=== PATIENT | female | born 1945 | race Caucasian/White ===

== ENCOUNTER 2018-04-09 12:30 | Inpatient (IN) | payer BC ==
[2018-04-10] MEDS ORDERED: CELECOXIB 100 MG CAPSULE PO ONE (14:15)
[2018-04-10] MEDS ORDERED: FAMOTIDINE 20MG TABLET PO ONE (14:15)
[2018-04-10] MEDS ORDERED: ACETAMINOPHEN 1,000 MG/100 ML BTL IV ONE (14:15)
[2018-04-10] MEDS ORDERED: METOCLOPRAMIDE 10 MG TABLET PO ONE (14:15)
[2018-04-10] MEDS ORDERED: MECLIZINE 25 MG TABLET PO ONE (14:15)
[2018-04-10] MEDS ORDERED: VANCOMYCIN HCL 1,000 MG in DEXTROSE 5 % IN WATER 250 ML IVPB ONE ×2 (14:15)
[2018-04-14] MEDS ORDERED: CELECOXIB 100 MG CAPSULE PO ONE (06:00)
[2018-04-14] MEDS ORDERED: MECLIZINE 25 MG TABLET PO ONE (06:00)
[2018-04-14] MEDS ORDERED: FAMOTIDINE 20MG TABLET PO ONE (06:00)
[2018-04-14] MEDS ORDERED: VANCOMYCIN HCL 1,000 MG in DEXTROSE 5 % IN WATER 250 ML IVPB ONE ×2 (06:00)
[2018-04-14] MEDS ORDERED: ACETAMINOPHEN 1,000 MG/100 ML BTL IV ONE (06:00)
[2018-04-14] MEDS ORDERED: METOCLOPRAMIDE 10 MG TABLET PO ONE (06:00)
[2018-04-14] MEDS ORDERED: PROMETHAZINE HCL 12.5 MG in 0.9 % SODIUM CHLORIDE 100ML 50 ML IVPB PRN (08:21)
[2018-04-14] MEDS ORDERED: BISACODYL 10 MG SUPP RC PRN (08:21)
[2018-04-14] MEDS ORDERED: NALOXONE 0.4 MG/1 ML VIAL IVP PRN (08:21)
[2018-04-14] MEDS ORDERED: MAGNESIUM HYDROXIDE 30 ML UDC PO PRN (08:21)
[2018-04-14] MEDS ORDERED: ACETAMINOPHEN W/ CODEINE 300MG/30MG TABLET PO PRN ×2 (08:21)
[2018-04-14] MEDS ORDERED: ONDANSETRON HCL IV 4 MG/2 ML VIAL IVP PRN (08:21)
[2018-04-14] MEDS ORDERED: HYDROMORPHONE HCL 2 MG/ML VIAL IM PRN ×2 (08:21)
[2018-04-14] MEDS ORDERED: METOCLOPRAMIDE HCL 10 MG/2 ML VIAL IVP PRN (08:21)
[2018-04-14] MEDS ORDERED: DIPHENHYDRAMINE HCL 25 MG CAPSULE PO PRN (08:21)
[2018-04-14] MEDS ORDERED: ZOLPIDEM TARTRATE 5 MG TABLET PO PRN (08:21)
[2018-04-14] MEDS ORDERED: KETOROLAC 30 MG/ML VIAL IVP PRN ×2 (08:21)
[2018-04-14] MEDS ORDERED: TRAMADOL HCL 50 MG TABLET PO PRN ×2 (08:21)
[2018-04-14] MEDS ORDERED: HYDROCODONE/APAP 7.5/325MG TABLET PO PRN (08:21)
[2018-04-14] MEDS ORDERED: ACETAMINOPHEN W/ CODEINE 300MG/60MG TABLET PO PRN ×2 (08:21)
[2018-04-14] MEDS ORDERED: AL HYDROX/MAG HYDROX 30ML UD PO PRN (08:21)
[2018-04-14] MEDS ORDERED: ACETAMINOPHEN 325 MG TAB PO PRN (08:21)
[2018-04-14] MEDS ORDERED: HYDROCODONE/APAP 5/325MG TABLET PO PRN ×2 (08:21)
[2018-04-14 08:41] LABS: ABO GROUP A; ANTIBODY SCREEN NEGATIVE (NEGATIVE); RH TYPE POSITIVE
[2018-04-14] MEDS ORDERED: DEXTROSE 5 % AND 0.9 % NACL 1,000 ML IV PRN (12:00)
[2018-04-14] MEDS ORDERED: DIPHENHYDRAMINE HCL 50 MG/ML VIAL IVP ONE (14:00)
[2018-04-14] MEDS ORDERED: DEXAMETHASONE 4 MG/ML 1ML VIAL IVP ONE (14:00)
[2018-04-14] MEDS ORDERED: HYDROMORPHONE HCL 2 MG/ML VIAL IV ONE (14:00)
[2018-04-14] MEDS ORDERED: FENTANYL PF 100MCG/2ML VIAL IV ONE (14:00)
[2018-04-14] MEDS ORDERED: SCOPOLAMINE 1 PATCH TDSY TD ONE (14:00)
[2018-04-14] MEDS ORDERED: ONDANSETRON HCL IV 4 MG/2 ML VIAL IVP ONE (14:00)
[2018-04-14] MEDS ORDERED: PROPOFOL 10 MG/ML VIAL IV ONE (14:00)
[2018-04-14] MEDS ORDERED: PHENYLEPHRINE HCL 10 MG/ML VIAL IVP ONE (14:00)
[2018-04-14] MEDS ORDERED: MIDAZOLAM HCL 2MG/2ML VIAL IV ONE (14:00)
[2018-04-14] MEDS ORDERED: BUPIVACAINE 0.5% (5MG/ML) PF 30ML VIAL IVP ONE (15:03)
[2018-04-14] MEDS ORDERED: VANCOMYCIN HCL 1 GM VIAL IVPB ONE ×2 (15:03→15:05)
[2018-04-14] MEDS ORDERED: TRANEXAMIC ACID 1,000 MG/10 ML ML IV ONE ×2 (15:03→15:05)
[2018-04-14] MEDS ORDERED: BUPIVACAINE 0.5% W/EPI MPF 30 ML VIAL IVP ONE (15:05)
[2018-04-14] MEDS ORDERED: BUPIVACAINE LIPOSOME 266MG/20ML VIAL IV ONE (15:05)
--- NOTE | 2018-04-14 16:42 | Rehab Evaluation ---
Patient Information - Patient Information Diagnosis: R knee OA Ordered Treatment: PT Evaluate and Treat Status: Initial Evaluation Surgery: Yes (R TKA) Date of Surgery: 04/14/18 Past Medical/Surgical Hx: PAST MEDICAL/SURGICAL HISTORY Past Surgical History hyst jesús LTHA right RCR thyroid PMH - Respiratory Hx Respiratory Disorders Yes Hx Bronchitis Yes Hx Pulmonary Embolism Yes: 7-8 yrs ago unknown etiology Hx Sleep Apnea Yes Hx of CPAP Yes: not all the time request that she bring it with her Comment: allergies/sinus PMH - Cardiovascular Hx Cardiovascular Disorders Yes Hx Edema Yes Hx Hypertension Yes Exercise Tolerance Fair PMH - Neuro Hx Neurological Disorders Yes Hx Headaches Yes: occassionally PMH - GI Hx Gastrointestinal Disorders No PMH - Hx Genitourinary Disorders Yes Hx Bladder Problem Yes: Interstitial cystitis freq urination Comment: s/p hyst 32 yrs old PMH - Endocrine Hx Endocrine Disorders Yes Hx Thyroid Disease Yes PMH - Musculoskeletal Hx Musculoskeletal Disorders Yes Hx Arthritis Yes Hx Fibromyalgia Yes PMH - Psych Hx Psychiatric Problems Yes Hx Depression Yes PMH - Hematology/Oncology Hx Hematology/Oncology Yes Disorders Hx Blood Transfusion Reaction No Premorbid Status: Detail (The patient was prior to surgery independent with mobility and ambulatory with a cane or 4 wheeled walker.) Social History: Detail (The patient lives with spouse in a one story home, but will be staying with daughter initially who has a one story home. The daughter' s home has 2 stairs at the enterance with no railings. The bathroom is equipped with a walk in shower and a shower bench and a standard toilet with no grab bars. The patient has a two wheeled walker and a 4 wheeled walker and a cane.) Precautions: None given, Clifford, Other (WBAT on the R LE.) - Time With Patient Total Time Spent With Patient (Min): 30 Treatment Procedures: Detail (Initial Evaluation) Subjective Information - Subjective Information Per Patient (The patient has minimal complaints of R knee pain. The patient did not rate her pain using 0 to 10 pain scale.) Objective Data - Mental Status Patient Orientation: Oriented x3 - Visual Perception Appears within normal limits for therapeutic activities - ROM Not within normal limits (The patient's R knee is limited in AROM and not formally tested s/p surgery.) - Strength/Tone Not within normal limits (The patient's R LE strength was not tested secondary to s/p surgery, however strength is functional ie: the patient is able to complete a SLR. The patient's L LE strength is generally 4+to 5/5.) - Bed Mobility Needs Assist (The patient was sitting on edge of the bed when PT arrived.) - Transfers Independent (The patient was independent with sit to and from stand transfer.) - Balance Balance Sitting: Good Balance Standing: Good - Sensation Intact - Gait Detail (The patient ambulated with 2 wheeled walker WBAT on the R LE a distance of 40 feet x 1 and 8 feet x 1 with supervision for safety only.) Therapy Assessment - Therapy Assessment Detail (The patient was independent with ambulation and transfers. Feel the patient will progress well with mobility.) Patient Education - Patient Education Teaching Topic: Exercise/Activity (The patient completed TKA exercises including : gluteal sets, ankle pumps,hamstring sets, quad sets, heel slides and SLR.) Response: Return Demonstration Teaching Method: Demonstration, Handout Teaching Recipient: Patient Barriers To Learning: Age Related Problem List - Problem List Physical Therapy Problem List: Detail (1) Decreased R knee AROM and strength as to be expected s/p surgery. 2) Non ambulatory on stairs) Goals - Goals Physical Therapy Goals: 1) The patient will be independent with bed mobility. 2 ) The patient will ambulate on stairs with supervision for safety with use of railing and folded walker, WBAT on the R LE. Prognosis - Prognosis Good Plan - Plan Physical Therapy Plan: PT 1-2 sessions for gait training on stairs and bed mobility until all PT goals have been met.
[2018-04-14] MEDS: HYDROCODONE/APAP 7.5/325MG TABLET PO PRN ×2 (18:49→22:15)
[2018-04-14] MEDS: VANCOMYCIN HCL 1,000 MG in DEXTROSE 5 % IN WATER 250 ML IVPB SCH ×2 (22:01)
[2018-04-14] MEDS: DOCUSATE SODIUM 100 MG CAPSULE PO SCH (22:22)
[2018-04-14] MEDS: FERROUS SULFATE 325 MG TAB PO SCH (22:22)
[2018-04-15] MEDS: HYDROCODONE/APAP 7.5/325MG TABLET PO PRN ×2 (01:50→06:49)
[2018-04-15 06:50] LABS: HEMATOCRIT 35.9 % (35.0-47.0); HEMOGLOBIN 11.4 gm/dl (11.6-16.0)
--- NOTE | 2018-04-15 07:54 | Rehab Evaluation ---
Patient Information - Patient Information Diagnosis: R knee OA Ordered Treatment: OT Evaluate and Treat Status: Initial Evaluation Surgery: Yes (R TKA) Date of Surgery: 04/14/18 Past Medical/Surgical Hx: PAST MEDICAL/SURGICAL HISTORY Past Surgical History hyst jesús LTHA right RCR thyroid PMH - Respiratory Hx Respiratory Disorders Yes Hx Bronchitis Yes Hx Pulmonary Embolism Yes: 7-8 yrs ago unknown etiology Hx Sleep Apnea Yes Hx of CPAP Yes: not all the time request that she bring it with her Comment: allergies/sinus PMH - Cardiovascular Hx Cardiovascular Disorders Yes Hx Edema Yes Hx Hypertension Yes Exercise Tolerance Fair PMH - Neuro Hx Neurological Disorders Yes Hx Headaches Yes: occassionally PMH - GI Hx Gastrointestinal Disorders No PMH - Hx Genitourinary Disorders Yes Hx Bladder Problem Yes: Interstitial cystitis freq urination Comment: s/p hyst 32 yrs old PMH - Endocrine Hx Endocrine Disorders Yes Hx Thyroid Disease Yes PMH - Musculoskeletal Hx Musculoskeletal Disorders Yes Hx Arthritis Yes Hx Fibromyalgia Yes PMH - Psych Hx Psychiatric Problems Yes Hx Depression Yes PMH - Hematology/Oncology Hx Hematology/Oncology Yes Disorders Hx Blood Transfusion Reaction No Premorbid Status: Detail (Prior to surgery pt was independent with mobility and ambulatory with a cane or 4 wheeled walker. She is mainly responsible for home mgmt, meal prep and laundry with the exception of using the vacuum.) Social History: Detail (The patient lives with spouse and 2 grandsons in a one story home with basement, she stays on the main level. Her entrance has 5 steps with juan manuel railings. She has a walk in shower and a tub/shower combination with a seat and multiple grab bars as well as an elevated toilet with grab bars. She will be staying with her daughter for a week who has a one story home. The daughter's home has 2 steps at the entrance with no railings. The bathroom is equipped with a walk in shower and a shower bench and a standard toilet with no grab bars. The patient has a two wheeled walker, 4 wheeled walker, cane, university archivist, sock aid and shoe horn.) Precautions: [place], Fall, Other (WBAT on the R LE.) - Time With Patient Total Time Spent With Patient (Min): 30 Treatment Procedures: Detail (OT eval low complexity) Subjective Information - Subjective Information Per Patient Objective Data - Pain Pain Present: Yes (04/03) - Mental Status Patient Orientation: Oriented x3 - Visual Perception Appears within normal limits for therapeutic activities - ROM Within normal limits (Juan Manuel UE AROM WNL) - Strength/Tone Within normal limits (Juan Manuel UE strength WNL) - Coordination Appears within normal limits for therapeutic activities - Transfers Independent (Ind with sit to stand from chair height.) - Balance Balance Sitting: Good Balance Standing: Good - Sensation Intact - ADL's/IADL's Detail (Pt educated re: modified LE dressing techniques. She was Ind with donning shorts, doffing slippers and donning left sock and shoe, she required min assist to don left sock and shoe but feels confident with using adaptive equipment once she is home. Reviewed shower and kitchen safety, pt verbalized understanding.) Therapy Assessment - Therapy Assessment Detail (Pt is safe and Ind with self cares and has appropriate adaptive equipment.) Problem List - Problem List Physical Therapy Problem List: Detail (1) Decreased R knee AROM and strength as to be expected s/p surgery. 2) Non ambulatory on stairs) Occupational Therapy Problem List: Detail (No current OT problems identified.) Goals - Goals Physical Therapy Goals: 1) The patient will be independent with bed mobility. 2 ) The patient will ambulate on stairs with supervision for safety with use of railing and folded walker, WBAT on the R LE. Occupational Therapy Goals: No current OT goals identified. Prognosis - Prognosis Good Plan - Plan Physical Therapy Plan: PT 1-2 sessions for gait training on stairs and bed mobility until all PT goals have been met. Occupational Therapy Plan: No further IP OT recommended at this time. Thank you for this referral.
[2018-04-15] MEDS: VANCOMYCIN HCL 1,000 MG in DEXTROSE 5 % IN WATER 250 ML IVPB SCH ×2 (08:25)
--- NOTE | 2018-04-15 09:24 | Operative Note ---
DATE OF SURGERY: 04/14/2018 PREOPERATIVE DIAGNOSIS: END-STAGE RIGHT KNEE ARTHROSIS. POSTOPERATIVE DIAGNOSIS: END-STAGE RIGHT KNEE ARTHROSIS. OPERATION: RIGHT TOTAL KNEE ARTHROPLASTY. SURGEON: MERCEDES OH M.D. ANESTHESIA: SPINAL. ANESTHESIA PROVIDER: KATJA ARRINGTON. COMPLICATIONS: NONE. BLOOD LOSS: MINIMAL. TOURNIQUET TIME: ABOUT 70 MINUTES. OPERATIVE FINDINGS: [id number] severe medial compartment arthrosis and tricompartment. COMPONENTS PLACED: 2 gram Vancomycin cement, Mccrary [employer] Nephew Journey II total knee arthroplasty system size 4 femoral component, size 3 tibial baseplate, a 10 -mm thick tibial poly insert, and a 32-mm cemented patella component. INDICATIONS FOR OPERATION: This is a 72-year-old female with end-stage right knee arthrosis who failed nonoperative treatment presented for total knee arthroplasty. I explained the risks and benefits in detail for diagnosis and procedures, including but not limited to, infection, nerve injury, vascular injury, persistent pain, numbness and tingling in her knee, periprosthetic fracture, need for resection of arthroplasty should the components become infected or loosened, nerve injury, vessel injury, blood clot, amputation, and need for further procedures, need for anticoagulation to prevent blood clot and the risks associated with these medications and need for procedures. All of her questions were answer and her rehab and healing course were outlined and agreed to proceed. PROCEDURE: The patient was brought to the OR and placed in the supine position for arthroscopic surgery. Spinal anesthesia was induced and her right lower extremity and knee were prepped and draped in sterile fashion. Right knee was prepped again with ChloraPrep and it was draped. Intraoperative time out was performed. The leg was exsanguinated with Esmarch and the knee was flexed and tourniquet inflated to 250 mmHg pressure. Next, the skin and subcutaneous tissue was dissected down. Incised the capsule medially around the medial border of the patella to the tibial tubercle. Incised the vastus medialis in line with its fibers in a mid vastus approach. Partially resected the retropatellar fat pad. Everted the patella and elevated the capsule periosteally medially. She had severe [id number] arthrosis predominantly medially. We then drilled an intercondylar drill hole and inserted the intramedullary guide stephen with 6 degree cutting block, aligned the distal femoral condyle and it was pinned in a +2 mm position then we cut the distal femoral condyles. Next, we placed a sizing jig on the distal femoral condyle and sized it to be right on size 4. Through the previously placed pinholes, we placed the 5-in-[address] and then we dialed in the anterior cut so it would come out flush without notching the femur and cut that cut and it was a good cut and then pinned it, cut the remainder chamfer cuts in the usual fashion. Next, we placed the size 4 trial component, centered it, pinned it, and inserted resection collar and reamed out box osteotome with a cruciate bone block and removed osteophytes off the periphery. Attention turned to the tibia. Exposed the proximal tibia, seated the spikes, extra-alignment guide between the tubercular groove two fingerbreadths distally and off the central third tibial tubercle. We referenced for a 7 mm cutoff the high lateral plateau and we pinned the cutting jig position provisionally with two anterior posterior pins. We then rechecked the alignment with the cutting jig using a drop stephen, centered on the tibial anatomic axis, and cross pinned completing its fixation to cut the tibia. Removed osteophytes from the posterior femoral condyles. Checked flexion and extension gaps and best was with a 10 mm insert allowing for 2-3 mm varus valgus laxity and flexion and extension. Overall alignment, cuts and extension with alignment stephen centered on the hip joint and ankle joint. Took the knee in flexion, we sized the tibial baseplate to be a size 3. Next, we replaced all trial components, set the rotation of tibial baseplate again in extension, using the alignment stephen centered on the hip joint and ankle joint. Marked with electrocautery porter on the anterior tibial cortex off the laser porter of the tibial baseplate. Next, attention was turned to the patella. We measured the patella to be 21 mm, set the cutting jig at 13 mm to allow for a 9 mm thick poly insert. Cut the patella, chamfered off the lateral patella of the facet and medialized as much as possible to measure for a 32 and drilled the peg holes, and then mixed cement. Next, took the knee in flexion, exposed the proximal tibia again, set the tibial baseplate off the previously-placed porter, pinned it, and then drilled out a keel punch and keel hole. We placed a bone plug in the femoral canal hole, placed a drill bit in the tibial keel hole, and then changed gloves, brought out clean sheets, copiously irrigated bony surfaces using pulsatile antibiotic solution then precoated both surfaces, impacted down the tibial component and then the femoral component, remove excess cement, placed the trial tibial poly tape deck installer, held the knee in extension, clamped down the patellar component until the cement hardened. Once the cement hardened, took the knee in flexion, distracted the knee with bone hook and sponge, irrigated copiously. Removed any excess cement off the edges of the components. We injected deep to superficial with our joint cocktail of 0.50% Marcaine with Epi, 2 grams Tranexamic Acid and Exparel mixture. We previously injected the skin and subcutaneous tissue at the start of the case then inserted and interlocked the real tibial poly insert, verified it was interlocked medially and laterally. Final range of motion and stability revealed the same. Irrigated and closed the capsule in flexion with a running #2 quill suture, irrigated again and closed the skin and subcutaneous with interrupted 2-0 Vicryl and placed a sterile dressing with ACTICOAT on it in which will be later converted to a NITA dressing prior to discharge. An Bob wrap was applied. Patient tolerated the procedure well. No intraoperative complications. All sponge, needle, and blade counts correct. Sent to Recovery room stable, neurovascularly intact. She will be discharged to the Floor and will be discharged home tomorrow for follow-up in two weeks. cc: Dr. Oliva Muse JOB NUMBER: [id number] MTDD
--- NOTE | 2018-04-15 09:30 | Physical Therapy Tx Note ---
Physical Therapy Tx Note - Treatment Note Tolerated: Good Total Time Spent With Patient: 20 Physical Therapy Tx Note: Detail (The patient was up in a chair when PT arrived. The patient ambulated 60 feet with 2 wheeled walker WBAT on the R LE independently. The patient ambulated on 3 steps with use of one railing and folded walker with supervision for safety only. The patient was Independent with bed mobilty. The patient she feels comfortable completing all HEP. The patient has met all PT goals and is discharged from inpatient PT.) Physical Therapy Problem List: Detail (1) Decreased R knee AROM and strength as to be expected s/p surgery. 2) Non ambulatory on stairs) Physical Therapy Goals: GOALS MET:1) The patient will be independent with bed mobility. 2) The patient will ambulate on stairs with supervision for safety with use of railing and folded walker, WBAT on the R LE. Physical Therapy Plan: All inpatient PT goals have been met. The patient is to continue with Home PT.
[2018-04-15] MEDS ORDERED: RIVAROXABAN 10 MG TABLET PO SCH (10:00)
[2018-04-15] MEDS ORDERED: CELECOXIB 100 MG CAPSULE PO SCH (10:00)
[2018-04-15] MEDS: DOCUSATE SODIUM 100 MG CAPSULE PO SCH (10:28)
[2018-04-15] MEDS: FERROUS SULFATE 325 MG TAB PO SCH (10:28)
[2018-04-15] MEDS ORDERED: DULOXETINE HCL 30 MG CAPSULE.DR PO SCH (12:30)
[2018-04-15] MEDS ORDERED: RAMIPRIL 2.5 MG CAPSULE PO SCH (12:30)
[2018-04-15] MEDS ORDERED: AMLODIPINE BESYLATE 5MG TAB PO SCH (12:30)
[2018-04-15] MEDS ORDERED: HYDROCHLOROTHIAZIDE 25 MG TABLET PO SCH (12:30)
[2018-04-15] MEDS ORDERED: LEVOTHYROXINE SODIUM 175 MCG TABLET PO SCH (12:30)
== END 2018-04-15 14:05 | disposition home or self-care (01) | DRG 470 ==
LOC: MEDSURG 04-14 07:58
PROVIDERS: ADMIT Orthopaedic Surgery; ATTEND Orthopaedic Surgery
PROC: 0SRC069 Replacement of Right Knee Joint with Oxidized Zirconium on Polyethylene Synthetic Substitute, Cemented, Open Approach (ICD-10-PCS; principal; 2018-04-14 10:00)
DX: M17.11 Unilateral primary osteoarthritis, right knee (principal); I10 Essential (primary) hypertension
CPT/HCPCS: 85014; 85018; 86850; 86900; 86901; 94761; 97530; J1200; J2370; J2405; J7060